=== PATIENT | female | born 1970 | race Caucasian/White ===

== ENCOUNTER 2016-11-25 14:08 | Emergency (ER) | payer OTHER ==
[~2016-11-25] VITALS: Ht 175.3 cm; Wt 100.0 kg
[~2016-11-25 14:08] MED LIST: HYDR-755 PO; LURA40 PO; NAPR500 PO; PROZ40CA PO; TRAZ50TA12 PO; ZANT150T2 PO; ZOFR4TAB3 SL
[2016-11-25 14:10] VITALS: BP 136/88; PULSE 120; RESP 20; TEMP 98.8; O2SAT 97
[2016-11-25 15:24] VITALS: BP 141/84; PULSE 107; RESP 23; O2SAT 98
--- NOTE | 2016-11-25 16:08 | PD ---
HPI Chief Complaint: Chest Pain Time Seen by Provider: 15:31 Travel History International Travel<30 days: No Contact w/Intl Traveler<30days: No Traveled to known affect area: No History of Present Illness HPI The patient was seen and examined in the presence of the nurse. This patient was smoking crack cocaine all night long. She started coughing and complained of shortness of breath. She also smokes cigarettes. No fever. Symptoms severity was moderate but has spontaneously improved over the course of the day. Symptoms are now mild. No alleviating factors. Duration 8 hours. Denies diagnosed cardiac or pulmonary problems. She felt congested. PFSH Past Medical History Blood Disorders: No Bipolar Disorder: Yes Anxiety: Yes Depression: Yes Cancer: No Cardiovascular Problems: Yes (PT CAN'T STATE WHAT CARDIO ISSUE SHE HAS) Diabetes: No Diminished Hearing: No Endocrine: No Gastrointestinal Disorders: No Genitourinary: No Immune Disorder: No Musculoskeletal: No Neurologic: No Reproductive: No Respiratory: No Immunizations Current: Yes PNEUMOCCOCAL Vaccine (Year): 2 ?: Not : 3 Para: 2 : 1 Tubal Ligation: Yes Past Surgical History AICD: No Appendectomy: Yes Arteriovenous Shunt: No Endocrine Surgery: Yes (thyroid cyst removal) Insulin Pump: No Joint Replacement: No Pacemaker: No Other Surgery: Yes (THYROID CYST REMOVED) Social History 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 Naprosyn (Naproxen) 500 Mg Tab 500 Mg PO BID PRN Zantac (Ranitidine HCl) 150 Mg Tab 150 Mg PO BID Reported Hydroxyzine HCl 10 Mg Tab 10 Mg PO TID PRN Trazodone (Trazodone HCl) 50 Mg Tab 50 Mg PO HS Latuda (Lurasidone) 40 Mg Tab 40 Mg PO DAILY Prozac (Fluoxetine HCl) 40 Mg Cap 80 Cap PO DAILY Review of Systems General / Constitutional: No: Fever Eyes: No: Visual changes HENT: Positive: Congestion, No: Headaches Cardiovascular: No: Chest Pain or Discomfort Respiratory: Positive: Cough, Shortness of Breath Gastrointestinal: No: Abdominal Pain Genitourinary: No: Dysuria Musculoskeletal: No: Pain Skin: No Rash Neurologic: No: Weakness Psychiatric: Positive: Substance Abuse, No: Depression Endocrine: No: Polydipsia Hematologic/Lymphatic: No: Easy Bruising Physical Exam Narrative GENERAL: Well-nourished, well-developed patient in no apparent distress. SKIN: Focused skin assessment reveals no rash and nodules. Skin is Warm and dry. HEAD: Atraumatic. Normocephalic. EYES: Pupils equal and round. No scleral icterus. No injection or drainage. ENT: No nasal bleeding or discharge. Mucous membranes pink and moist. NECK: Trachea midline. No JVD. CARDIOVASCULAR: Regular rate and rhythm. No murmur appreciated. RESPIRATORY: No accessory muscle use. Clear to auscultation. Breath sounds equal bilaterally. GASTROINTESTINAL: Abdomen soft, non-tender, nondistended. Hepatic and splenic margins not palpable. MUSCULOSKELETAL: No obvious deformities. No clubbing. No cyanosis. No edema. NEUROLOGICAL: Awake and alert. No obvious cranial nerve deficits. Motor grossly within normal limits. Normal speech. PSYCHIATRIC: Appropriate mood and affect; insight and judgment poor. Data Data Last Documented VS Vital Signs Date Time Temp Pulse Resp B/P Pulse Ox O2 Delivery O2 Flow Rate FiO2 11/25/16 15:26 98 Room Air 11/25/16 15:24 107 23 141/84 11/25/16 14:10 98.8 Orders Electrocardiogram (11/25/16 14:22) Chest, Single Ap (11/25/16 ) [facility] Medical Decision Making Medical Screen Exam Complete: Yes Emergency Medical Condition: Yes Medical Record Reviewed: Yes Differential Diagnosis Bronchitis, substance induced dyspnea, chemical irritant, COPD Narrative Course I have reviewed the patient's electronic medical record. Patient was breathing fine until she smoked crack cocaine and then got short of breath Current saturations are 100% on room air with clear lungs She is chatting on her cell phone and does not appear dyspneic I reviewed her chest x-ray which is normal I don't think she needs a workup to rule out PE I prescribed her an albuterol inhaler to use as needed Diagnosis Primary Impression: Chemical pneumonitis Additional Instructions: The patient was advised to follow up with their physician and return if they worsen. Med/Other Pt SpecificInfo: Prescription(s) given Scripts Albuterol 18 GM Inh (Ventolin Hfa 18 GM Inh)90 Mcg/Act Aer2 Puff INH Q4H PRN ( SHORTNESS OF BREATH) #1 INHALER Ref 0 Prov:Eddie Valadez MD 11/25/16 Disposition: 01 DISCHARGE HOME Condition: Stable Eddie Valadez MD Nov 25, 2016 16:08
--- NOTE | 2016-11-25 16:41 | RADRPT ---
EXAM DATE/TIME: 11/25/2016 16:17 [facility] COMPARISON: CHEST SINGLE AP, June 17, 2014, 23:20. INDICATIONS : Shortness of breath with cough post twenty-four hours of smoking rock cocaine. MEDICAL HISTORY : None. SURGICAL HISTORY : None. ENCOUNTER: Initial ACUITY: 1 day PAIN SCORE: 0/10 LOCATION: Bilateral chest FINDINGS: A single view of the chest demonstrates the lungs to be symmetrically aerated without evidence of mas s, infiltrate or effusion. The cardiomediastinal contours are unremarkable. Osseous structures are intact. CONCLUSION: No acute disease. Peter Duncan MD on November 25, 2016 at 16:38 Board Certified Radiologist. This report was verified electronically.
[2016-11-25] MEDS ORDERED: VENTAER INH (18:18)
--- NOTE | 2016-11-26 14:23 | EKG ---
Date Performed: 11/25/2016 Time Performed: 14:30:01 PTAGE: 46 years EKG: SINUS TACHYCARDIA Since previous tracing, no significant change noted ABNORMAL RHYTHM ECG PREVIOUS TRACING : 04/06/2016 03.54 DOCTOR: Froy Barth Interpretating Date/Time 11/26/2016 14:21:57
== END 2016-11-25 18:50 | disposition home or self-care (01) ==
LOC: NEPC 14:08
DX: T40.5X1A Poisoning by cocaine, accidental (unintentional), initial encounter (principal); J68.0 Bronchitis and pneumonitis due to chemicals, gases, fumes and vapors; F17.210 Nicotine dependence, cigarettes, uncomplicated
CPT/HCPCS: 71010; 93005; 99284

== ENCOUNTER 2017-02-15 23:37 | Emergency (ER) | payer OTHER ==
[~2017-02-15] VITALS: Ht 175.3 cm; Wt 102.0 kg
[~2017-02-15 23:37] MED LIST changes: +VENTAER INH
[2017-02-15 23:44] VITALS: BP 129/84; PULSE 105; RESP 16; TEMP 97.8; O2SAT 97
[2017-02-16] MEDS ORDERED: ZOLO25TA PO (00:02)
[2017-02-16] MEDS ORDERED: REME15TA PO (00:02)
[2017-02-16] MEDS ORDERED: RISP1 PO (00:02)
[2017-02-16] MEDS ORDERED: PRED50 PO (00:20)
--- NOTE | 2017-02-16 00:21 | PD ---
HPI Chief Complaint: Cold / Flu Symptoms Time Seen by Provider: 00:06 Travel History International Travel<30 days: No Contact w/Intl Traveler<30days: No Traveled to known affect area: No History of Present Illness HPI The patient is a 46-year-old female that has laryngitis. She was treated with Zithromax with no significant effect but also was given prednisone. 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 She wants to try another course of prednisone. She is not diabetic. She states there is no possibility of . She denies any fever or chest pain. Virtually all of her treatment has been at [facility]. She lives in [place]. [facility] Past Medical History Blood Disorders: No Bipolar Disorder: Yes Anxiety: Yes Depression: Yes Cancer: No Cardiovascular Problems: Yes (PT CAN'T STATE WHAT CARDIO ISSUE SHE HAS) Diabetes: No Diminished Hearing: No Endocrine: No Gastrointestinal Disorders: No Genitourinary: No Immune Disorder: No Musculoskeletal: No Neurologic: No Reproductive: No Respiratory: No Immunizations Current: Yes Tetanus Vaccination: Unknown Influenza Vaccination: No PNEUMOCCOCAL Vaccine (Year): 2 ?: Not LMP: 02-01-17 : 3 Para: 2 : 1 Tubal Ligation: Yes Past Surgical History AICD: No Appendectomy: Yes Arteriovenous Shunt: No Endocrine Surgery: Yes (thyroid cyst removal) Insulin Pump: No Joint Replacement: No Pacemaker: No Other Surgery: Yes (THYROID CYST REMOVED) Social History 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) Tobacco Use: Yes (1 PPD) Substance Use: Yes (RELAPSED SAT NIGHT CRACK COCAINE, PRIOR 4 YRS CLEAN) Allergies-Medications (Allergen,Severity, Reaction): Coded Allergies: latex (Unverified Allergy, Severe, Itching, 02/15/17) Reported Meds & Prescriptions Reported Meds & Active Scripts Active Reported Risperdal (Risperidone) 1 Mg Tab 1 Mg PO Q12HR Remeron (Mirtazapine) 15 Mg Tab 15 Mg PO HS Zoloft (Sertraline HCl) 25 Mg Tab 25 Mg PO DAILY Hydroxyzine HCl 10 Mg Tab 10 Mg PO TID PRN Review of Systems Except as stated in HPI: all other systems reviewed are Neg Physical Exam Narrative GENERAL: Well-nourished, well-developed patient in no respiratory distress. She whispers because she cannot speak. SKIN: Focused skin assessment warm/dry. HEAD: Normocephalic. EYES: No scleral icterus. No injection or drainage. NECK: Supple, trachea midline. No JVD or lymphadenopathy. CARDIOVASCULAR: Regular rate and rhythm without murmurs, gallops, or rubs. RESPIRATORY: Breath sounds equal bilaterally. No accessory muscle use. GASTROINTESTINAL: Abdomen soft, non-tender, nondistended. MUSCULOSKELETAL: No cyanosis, or edema. BACK: Nontender without obvious deformity. No CVA tenderness. Data Data Last Documented VS Vital Signs Date Time Temp Pulse Resp B/P (MAP) Pulse Ox O2 Delivery O2 Flow Rate FiO2 02/16/17 00:03 92 18 97 Room Air 02/15/17 23:44 97.8 129/84 (99) MDM Medical Decision Making Medical Screen Exam Complete: Yes Emergency Medical Condition: Yes Medical Record Reviewed: Yes Differential Diagnosis Laryngitis, pharyngitis, pneumonia, bronchitis Narrative Course The patient has laryngitis. This is almost assuredly a virus. Plan: The patient will be given a stepwise tapered course of prednisone over 8 days. She will also be given a work excuse. She needs to follow-up with a primary care physician. Diagnosis Primary Impression: Acute viral laryngitis Additional Instructions: The prednisone is taken one tablet twice daily for 4 days followed by one tablet once daily for 4 days. Follow-up with a primary care physician. Med/Other Pt SpecificInfo: Prescription(s) given Scripts Prednisone (Prednisone) 50 Mg Tab 50 MG PO BID for X 4 days than daily X 4 days, #12 TAB 0 Refills Prov: Ronn Maharaj MD 02/16/17 Disposition: 01 DISCHARGE HOME Condition: Stable Ronn Maharaj MD Feb 16, 2017 00:21
[2017-02-16] MEDS ORDERED: predniSONE 20 MG TAB PO ONE (00:30)
[2017-02-25] MEDS ORDERED: BENZ1LOZ5 PO (15:04)
[2017-02-25] MEDS ORDERED: PROT40TA PO (15:04)
[2017-02-25] MEDS ORDERED: ZITHTAB PO (15:04)
[2017-03-01] MEDS ORDERED: DEXT1LIQ15 PO (11:48)
[2017-03-08] MEDS ORDERED: PROT40TA PO (14:24)
== END 2017-02-16 00:41 | disposition home or self-care (01) ==
LOC: PHED 23:37
DX: J04.0 Acute laryngitis (principal); Z87.891 Personal history of nicotine dependence
CPT/HCPCS: 99283; J7512

== ENCOUNTER 2017-02-23 15:10 | Emergency (ER) | payer OTHER ==
[~2017-02-23] VITALS: Ht 175.3 cm; Wt 100.0 kg
[~2017-02-23 15:10] MED LIST changes: -LURA40 PO; -NAPR500 PO; +PRED50 PO; -PROZ40CA PO; +REME15TA PO; +RISP1 PO; -TRAZ50TA12 PO; -VENTAER INH; -ZANT150T2 PO; -ZOFR4TAB3 SL; +ZOLO25TA PO
[2017-02-23 15:12] VITALS: BP 169/81; PULSE 124; RESP 20; TEMP 98.5; O2SAT 95
--- NOTE | 2017-02-23 15:21 | PD ---
Physical Exam Date Seen by Provider: Feb 23, 2017 Time Seen by Provider: 15:17 Data Data Last Documented VS Vital Signs Date Time Temp Pulse Resp B/P (MAP) Pulse Ox O2 Delivery O2 Flow Rate FiO2 02/23/17 15:12 98.5 124 20 169/81 (110) 95 MDM Supervised Visit with KAR: No Narrative Course 46 -year-old female presents to the ED for evaluation of shortness of breath, near syncopal episode at work today. Endorses pleuritic chest pain, states that she was recently treated for pneumonia. Endorses compliance with Azithromycin. Also states that she is having side effects from new psychiatric medications. States that she feels very anxious about her health. Vitals reviewed. Patient seen in triage, awaiting bed placement. Karly Desai Feb 23, 2017 15:21
--- NOTE | 2017-02-23 15:43 | PD ---
HPI Chief Complaint: Respiratory Symptoms Time Seen by Provider: 15:23 Travel History International Travel<30 days: No Contact w/Intl Traveler<30days: No Traveled to known affect area: No History of Present Illness HPI 46-year-old female presents to the emergency department concerned that she may have pneumonia. Patient states she was diagnosed with pneumonia the beginning of January. She took azithromycin. She also was prescribed prednisone recently. She took her last dose today. This is for laryngitis. She states that she doesn't feel well today. She reports chest tightness. 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 She felt strange and anxious. She went to go to the bathroom when she states that she almost passed out. She denies any syncope or head injury. She states she sat down and then asked to come the emergency department. Patient reports history of drug use, but states she has not used any drugs in approximately 2 months. Patient denies any IV drug use. No fevers or chills. No abdominal pain. Nausea, vomiting, diarrhea. She denies reporting history of tubal ligation. Patient denies any history of PE or DVT. She is concerned that her psychiatric medications are causing problems. She states she was recently put on Remeron and Risperdal. She called her doctor who told her to take a half dose that she has an appointment on Saturday with her physician. Patient denies any hemoptysis. PFSH Past Medical History Blood Disorders: No Bipolar Disorder: Yes Anxiety: Yes Depression: Yes Cancer: No Cardiovascular Problems: Yes (PT CAN'T STATE WHAT CARDIO ISSUE SHE HAS) Diabetes: No Diminished Hearing: No Endocrine: No Gastrointestinal Disorders: No Genitourinary: No Immune Disorder: No Musculoskeletal: No Neurologic: No Reproductive: No Respiratory: Yes Immunizations Current: Yes PNEUMOCCOCAL Vaccine (Year): 2 : 3 Para: 2 : 1 Tubal Ligation: Yes Past Surgical History AICD: No Appendectomy: Yes Arteriovenous Shunt: No Endocrine Surgery: Yes (thyroid cyst removal) Insulin Pump: No Joint Replacement: No Pacemaker: No Other Surgery: Yes (THYROID CYST REMOVED) Social History 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) Tobacco Use: Yes (1 PPD) Substance Use: Yes (was smoking cocaine, has been drug free for 2 months) Allergies-Medications (Allergen,Severity, Reaction): Coded Allergies: latex (Unverified Allergy, Severe, Itching, 02/23/17) Reported Meds & Prescriptions Reported Meds & Active Scripts Active Prednisone 50 Mg Tab 50 Mg PO BID Reported Risperdal (Risperidone) 1 Mg Tab 1 Mg PO Q12HR Remeron (Mirtazapine) 15 Mg Tab 15 Mg PO HS Zoloft (Sertraline HCl) 25 Mg Tab 25 Mg PO DAILY Hydroxyzine HCl 10 Mg Tab 10 Mg PO TID PRN Review of Systems Except as stated in HPI: all other systems reviewed are Neg Physical Exam Narrative GENERAL: Well-nourished, well-developed female patient, afebrile. SKIN: Focused skin assessment warm/dry. HEAD: Normocephalic. Atraumatic EYES: No scleral icterus. No injection or drainage. NECK: Supple, trachea midline. No JVD or lymphadenopathy. CARDIOVASCULAR: Regular rhythm without murmurs, gallops, or rubs. Patient is tachycardic with heart rate in the 120s. RESPIRATORY: Breath sounds equal bilaterally. No accessory muscle use. Lungs sounds are clear to auscultation. GASTROINTESTINAL: Abdomen soft, non-tender, nondistended. MUSCULOSKELETAL: No cyanosis, or edema. Bilateral upper and lower extremity strength 5/5. All extremities are neurovascularly intact. BACK: Nontender without obvious deformity. No CVA tenderness. Data Data Last Documented VS Vital Signs Date Time Temp Pulse Resp B/P (MAP) Pulse Ox O2 Delivery O2 Flow Rate FiO2 02/23/17 17:51 98 Room Air 02/23/17 17:51 78 20 02/23/17 17:51 154/86 (108) 02/23/17 15:12 98.5 Orders Orders Electrocardiogram (02/23/17 15:33) Basic Metabolic Panel (Bmp) (02/23/17 15:33) Ckmb (Isoenzyme) Profile (02/23/17 15:33) Complete Blood Count With Diff (02/23/17 15:33) D-Dimer (02/23/17 15:33) Magnesium (Mg) (02/23/17 15:33) Prothrombin Time / Inr (Pt) (02/23/17 15:33) Act Partial Throm Time (Ptt) (02/23/17 15:33) Troponin I (02/23/17 15:33) Chest, Single Ap (02/23/17 15:33) Ecg Monitoring (02/23/17 15:33) Bilateral Bp Monitoring (02/23/17 15:33) Iv Access Insert/Monitor (02/23/17 15:33) Oximetry (02/23/17 15:33) Oxygen Administration (02/23/17 15:33) Sodium Chloride 0.9% Flush (Ns Flush) (02/23/17 15:45) Ed Urine Pregnancytest Poc (02/23/17 15:33) Sodium Chlor 0.9% 1000 Ml Inj (Ns 1000 M (02/23/17 15:45) Urinalysis - C+S If Indicated (02/23/17 15:34) Labs Laboratory Tests Test 02/23/17 14:55 02/23/17 16:00 Urine Color YELLOW Urine Turbidity HAZY Urine pH 7.5 Urine Specific [place] 1.015 Urine Protein NEG mg/dL Urine Glucose (UA) NEG mg/dL Urine Ketones NEG mg/dL Urine Occult Blood NEG Urine Nitrite NEG Urine Bilirubin NEG Urine Urobilinogen LESS THAN 2.0 MG/DL Urine Leukocyte Esterase NEG Urine WBC 1 /hpf Urine Squamous Epithelial Cells 1 /hpf Urine Amorphous Sediment RARE Urine Mucus FEW /lpf Microscopic Urinalysis Comment CULT NOT INDICATED White Blood Count 30.7 TH/MM3 Red Blood Count 4.57 MIL/MM3 Hemoglobin 13.5 GM/DL Hematocrit 40.5 % Mean Corpuscular Volume 88.6 FL Mean Corpuscular Hemoglobin 29.5 PG Mean Corpuscular Hemoglobin Concent 33.3 % Red Cell Distribution Width 15.0 % Platelet Count 325 TH/MM3 Mean Platelet Volume 7.2 FL Neutrophils (%) (Auto) 90.8 % Lymphocytes (%) (Auto) 5.9 % Monocytes (%) (Auto) 3.0 % Eosinophils (%) (Auto) 0.2 % Basophils (%) (Auto) 0.1 % Neutrophils # (Auto) 27.9 TH/MM3 Lymphocytes # (Auto) 1.8 TH/MM3 Monocytes # (Auto) 0.9 TH/MM3 Eosinophils # (Auto) 0.1 TH/MM3 Basophils # (Auto) 0.0 TH/MM3 CBC Comment AUTO DIFF Differential Total Cells Counted 100 Neutrophils % (Manual) 93 % Band Neutrophils % 3 % Lymphocytes % 3 % Monocytes % 1 % Neutrophils # (Manual) 29.5 TH/MM3 Differential Comment FINAL DIFF MANUAL Platelet Estimate NORMAL Platelet Morphology Comment NORMAL Red Cell Morphology Comment NORMAL Prothrombin Time 10.0 SEC Prothromb Time International Ratio 0.9 RATIO Activated Partial Thromboplast Time 22.0 SEC D-Dimer Quantitative (PE/DVT) 0.37 MG/L FEU Blood Urea Nitrogen 18 MG/DL Creatinine 1.07 MG/DL Random Glucose 134 MG/DL Calcium Level 8.5 MG/DL Magnesium Level 2.3 MG/DL Sodium Level 136 MEQ/L Potassium Level 4.7 MEQ/L Chloride Level 103 MEQ/L Carbon Dioxide Level 26.4 MEQ/L Anion Gap 7 MEQ/L Estimat Glomerular Filtration Rate 56 ML/MIN Total Creatine Kinase 48 U/L Troponin I LESS THAN 0.02 NG/ML MDM Medical Decision Making Medical Screen Exam Complete: Yes Emergency Medical Condition: Yes Medical Record Reviewed: Yes Interpretation(s) chest x-ray = CONCLUSION: 1. No acute cardiopulmonary disease. Differential Diagnosis Anxiety versus chest wall pain versus URI versus pneumonia versus PE versus unlikely ACS Narrative Course 46-year-old female presents to the emergency department for evaluation of chest tightness, upper respiratory symptoms, presyncope. Patient is tachycardic on exam. EKG, CBC, BMP, CK, troponin, magnesium, PTT, PT/INR, d-dimer are ordered and pending. UA and Urine test are ordered and pending. Chest x-ray is ordered and pending. Patient is given normal saline 1 L IV bolus. EKG shows sinus rhythm, heart rate 95, no acute ST changes. CBC shows leukocytosis 30.7. However, patient has been on high-dose prednisone. BMP shows no acute abnormality. CK is 48. Troponin is less than 0.02. Magnesium is 2.3. Coags show no acute abnormality. D-dimer is 0.37. UA is negative for acute infection. UPT is negative. Chest x-ray shows no acute cardiopulmonary disease. Patient appears well on exam. I believe leukocytosis is due to prednisone. However, she was also leukocytosis in the past. Upon further questioning with my attending physician at bedside, the patient states she has history of leukocytosis and has been worked up for this. She states she has been on prednisone for approximately the past month. She states that she was taking more than prescribed and has been cutting her 50 mg tablets up into quarters. She states she is only taking a quarter of a tablet today. Due to this, the patient will be given prednisone 40 mg by mouth here. She will be prescribed a prednisone taper for home to prevent adrenal crisis. She is to follow-up with her primary care physician on Saturday as she has scheduled. She verbalizes agreement to this. She is instructed on need to follow with her primary care physician regarding this. There is no evidence of infection on today's exam. I discussed the case my attending physician, Dr. Vogel, who agrees with plan and disposition. Diagnosis Primary Impression: Upper respiratory infection Qualified Codes: J06.9 - Acute upper respiratory infection, unspecified; B97.89 - Other viral agents as the cause of diseases classified elsewhere Referrals: Primary Care Physician call for appointment Patient Instructions: General Instructions, Upper Respiratory Infection (ED) Additional Instructions: Take prednisone taper as directed. Take 40 mg daily for 4 days then 30 mg daily for 4 days then 20 mg daily for 4 days, then 10 mg daily for 4 days, then stop. Follow up with your primary care physician. Return to the emergency department for any acute, worsening of symptoms. Med/Other Pt SpecificInfo: Prescription(s) given, No Change to Meds Scripts Prednisone (Prednisone) 10 Mg Tab 10 MG PO DIRECTED for 20 Days, TAB 0 Refills 40 mg daily for 4 days then 30 mg daily for 4 days then 20 mg daily for 4 days then 10 mg daily for 4 days then 5 mg daily for 4 days then stop Prov: Luli Mcginnis 02/23/17 Disposition: DISCHARGE HOME Condition: Stable Luli Mcginnis Feb 23, 2017 15:43
[2017-02-23] MEDS ORDERED: SODIUM CHLORIDE 0.9% FLUSH 10 ML FLUSH IVF PRN (15:45)
[2017-02-23] MEDS ORDERED: SODIUM CHLOR 0.9% 1000 ML INJ 1,000 ML IV ONE (15:45)
--- NOTE | 2017-02-23 16:06 | RADRPT ---
EXAM DATE/TIME: 02/23/2017 15:38 [facility] COMPARISON: CHEST SINGLE AP, November 25, 2016, 16:17. INDICATIONS : Shortness of breath, lightheaded and dizzy with the feeling of chest pressure after having pneumonia one month ago in the right lung. MEDICAL HISTORY : Pneumonia, right lung. SURGICAL HISTORY : None. ENCOUNTER: Initial ACUITY: 1 month PAIN SCORE: 0/10 LOCATION: Bilateral chest FINDINGS: A single view of the chest demonstrates the lungs to be symmetrically aerated without evidence of mas s, infiltrate or effusion. The cardiomediastinal contours are unremarkable. Osseous structures are intact. CONCLUSION: 1. No acute cardiopulmonary disease. Angel Springer MD on February 23, 2017 at 16:04 Board Certified Radiologist. This report was verified electronically.
[2017-02-23 16:14] LABS: AUTOMATED NEUTROPHIL # 27.9 TH/MM3 (1.8-7.7); BASOPHIL % 0.1 % (0.0-2.0); EOSINOPHIL # 0.1 TH/MM3 (0-0.4); EOSINOPHIL % 0.2 % (0.0-4.0); HEMATOCRIT 40.5 % (35.0-46.0); LYMPH % 5.9 % (9.0-44.0); LYMPHOCYTE # 1.8 TH/MM3 (1.0-4.8); MEAN CELL VOLUME 88.6 FL (80.0-100.0); MEAN CORPUSCULAR HEMOGLOBIN 29.5 PG (27.0-34.0); MEAN CORPUSCULAR HGB CONC 33.3 % (32.0-36.0); NEUT % 90.8 % (16.0-70.0); PLATELET COUNT 325 TH/MM3 (150-450); RED BLOOD COUNT 4.57 MIL/MM3 (4.00-5.30); WHITE BLOOD COUNT 30.7 TH/MM3 (4.0-11.0)
[2017-02-23 16:23] LABS: HEMO FLAGS AUTO DIFF
[2017-02-23 16:26] LABS: BLOOD, URINE NEG (NEG); COMMENT (UR) CULT NOT INDICATED; CULTURE IF INDICATED CULT NOT INDICATED; GLUCOSE,URINE NEG (NEG); KETONE, URINE NEG (NEG); MUCUS URINE FEW /lpf (OCC); NITRITE,URINE NEG (NEG); PH, URINE 7.5 (5.0-8.5); SQUAMOUS EPITHELIAL CELL URINE 1 /hpf (0-5); URINE COLOR YELLOW (YELLW/STRAW)
[2017-02-23 16:30] LABS: INTERNATIONAL NORMALIZED RATIO 0.9 RATIO
[2017-02-23 16:45] LABS: ANION GAP 7 MEQ/L (5-15); BICARBONATE 26.4 MEQ/L (21.0-32.0); BLOOD UREA NITROGEN 18 MG/DL (7-18); CHLORIDE 103 MEQ/L (98-107); GLOMERULAR FILTRATION RATE 56 ML/MIN (>89); MAGNESIUM 2.3 MG/DL (1.5-2.5); POTASSIUM 4.7 MEQ/L (3.5-5.1); SODIUM (NA) 136 MEQ/L (136-145)
[2017-02-23 16:46] LABS: CREATINE KINASE 48 U/L (26-192)
[2017-02-23 16:48] LABS: BANDS 3 % (0-6); NEUTROPHIL # MANUAL DIFF 29.5 TH/MM3 (1.8-7.7); POLYS (SEG NEUTROPHILS) 93 % (16-70); WBC DIFF SAMPLE 100
[2017-02-23 16:49] LABS: PLATELET ESTIMATE SMEAR NORMAL (NORMAL); PLATELET MORPHOLOGY NORMAL (NORMAL); SCAN/DIFF FINAL DIFF MANUAL
[2017-02-23 17:51] VITALS: BP 154/86; PULSE 84; RESP 20; O2SAT 98
[2017-02-23] MEDS ORDERED: predniSONE 20 MG TAB PO ONE (18:30)
[2017-02-23] MEDS ORDERED: PRED10 PO (18:33)
[2017-02-23 18:53] VITALS: BP_SYST 137; BP_SYST 142; BP_SYST 144; BP_DIAS 57; BP_DIAS 70; BP_DIAS 82; PULSE 74; RESP 18; O2SAT 98
--- NOTE | 2017-02-24 01:15 | EKG ---
Date Performed: 02/23/2017 Time Performed: 17:57:11 PTAGE: 46 years EKG: Sinus rhythm WITH SHORT OK INTERVAL BORDERLINE ECG PREVIOUS TRACING : 11/25/2016 14.30 No significant change from previous tracing noted. DOCTOR: Geraldo Leija Interpretating Date/Time 02/24/2017 01:13:34
[2017-02-25] MEDS ORDERED: ZITHTAB PO (15:04)
[2017-02-25] MEDS ORDERED: BENZ1LOZ5 PO (15:04)
[2017-02-25] MEDS ORDERED: PROT40TA PO (15:04)
[2017-03-01] MEDS ORDERED: DEXT1LIQ15 PO (11:48)
[2017-03-08] MEDS ORDERED: PROT40TA PO (14:24)
== END 2017-02-23 19:12 | disposition home or self-care (01) ==
LOC: NEPE 15:10
DX: J06.9 Acute upper respiratory infection, unspecified (principal); F31.9 Bipolar disorder, unspecified
CPT/HCPCS: 71010; 80048; 81001; 82550; 83735; 84484; 84703; 85007; 85027; 85379; 85610; 85730; 93005; 96360; 99285; J7030; J7512